=== PATIENT | male | born 1930 | race Caucasian/White ===

== ENCOUNTER 2019-10-16 12:05 | Inpatient (IN) | payer MEDICARE ==
[~2019-10-16] VITALS: Ht 172.7 cm; Wt 71.3 kg
[2019-10-16] MEDS ORDERED: SODIUM CHLORIDE 0.9% 1,000 ML IV ONE (12:37)
--- NOTE | 2019-10-16 12:38 | NUR ---
REPORT RECEIVED JEFFREY YOUNGER. PT ORIENTED TO SELF, NOT TIME/PLACE/SITUATION. NARVAEZ IN ROOM. PLAN LABS/URINE (NO NEED TO CATH). PLAN FOR SOCIAL ADMIT. PT ATE PBANDJ. VSS. CALL BARRAGAN IN REACH. NAD.
[2019-10-16] MEDS ORDERED: SODIUM CHLORIDE FLUSH 10ML SYR IVF ONE (13:00)
[2019-10-16] MEDS ORDERED: PLEASE ENTER ALLERGIES MC SCH (13:00)
--- NOTE | 2019-10-16 13:12 | NUR ---
PIV EST LABS SENT FLUIDS INFUSING.
[2019-10-16 13:17] LABS: BASOPHILS # (AUTO) 0.02 x10^3/uL (0-0.1); BASOPHILS % (AUTO) 0 % (0-1); EOSINOPHILS # (AUTO) 0.26 x10^3/uL (0-0.4); EOSINOPHILS % (AUTO) 5 % (1-7); LYMPHOCYTES # (AUTO) 1.14 x10^3/uL (1-3.4); LYMPHOCYTES % (AUTO) 23 % (22-44); MD NO; MEAN CORPUSCULAR HEMOGLOBIN 32.1 pg (27.5-34.5); MEAN CORPUSCULAR VOLUME 97.2 fL (81-97); MEAN PLATELET VOLUME 6.5 fL (7.4-10.4); MONOCYTES # (AUTO) 0.32 x10^3/uL (0.2-0.8); MONOCYTES % (AUTO) 7 % (2-9); NEUTROPHILS # (AUTO) 3.13 x10^3/uL (1.8-6.8); NEUTROPHILS % (AUTO) 64 % (42-75); PLATELET COUNT 288 x10^3/uL (130-400); RED BLOOD COUNT 4.08 x10^6/uL (4.38-5.82); RED CELL DISTRIBUTION WIDTH 14.6 % (9.4-14.8)
--- NOTE | 2019-10-16 13:25 | NUR ---
CXR SHOWS SMALL L PNEUMO
[2019-10-16 13:29] LABS: ALANINE AMINOTRANSFERASE 18 U/L (12-78); ALBUMIN 3.5 g/dL (3.4-5.0); ANION GAP 4 mmol/L (5-15); CALCIUM 8.4 mg/dL (8.5-10.1); CHLORIDE 108 mmol/L (98-107); CREATININE 1.51 mg/dL (0.7-1.3)
[2019-10-16 13:32] LABS: ALKALINE PHOSPHATASE 90 U/L (45-117); BILIRUBIN,TOTAL 1.1 mg/dL (0.2-1.0); TOTAL PROTEIN 7.2 g/dL (6.4-8.2)
--- NOTE | 2019-10-16 13:52 | NUR ---
labs unremarkable ct head wnl. sr on monitor. nad, call lua in reach. as
[2019-10-16] MEDS ORDERED: ZIPRASIDONE 20 MG INJ IM ONE ×2 (14:42→15:00)
--- NOTE | 2019-10-16 14:53 | NUR ---
PT PULLED OUT IV. VERY CONFUSED, NOT COOPERATING. DR JENKINS IN ROOM FOR EVAL. PT TO BE ADMITTED. 10 MG GEODON IM GIVEN PER VERBAL ORDER. 3 RNS AT BEDSIDE. SITTER IN PLACE, CHARGE NOTIFIED.
[2019-10-16] MEDS ORDERED: SODIUM CHLORIDE FLUSH 10ML SYR IVF PRN (15:00)
[2019-10-16] MEDS ORDERED: LORazepam 2 MG/ML, 1ML ONE (15:24)
[2019-10-16] MEDS ORDERED: ACETAMINOPHEN 325 MG TABLET PO PRN (15:30)
[2019-10-16] MEDS ORDERED: INSTRUCTION SEE COMMENTS XX PRN (15:30)
[2019-10-16] MEDS ORDERED: ONDANSETRON 2MG/ML, 2ML IVPush PRN (15:30)
[2019-10-16] MEDS ORDERED: AVOID BENZODIAZEPINES MC PRN (15:30)
[2019-10-16] MEDS ORDERED: LORazepam 2 MG/ML, 1ML IM ONE (15:30)
[2019-10-16] MEDS ORDERED: hydrALAzine 20 MG/ML, 1ML IVPush PRN (15:30)
--- NOTE | 2019-10-16 15:33 | NUR ---
ATIVAN IM. PT ATTEMPTING TO LEAVE, PUSHING STAFF, UNCOOPERATIVE. VEST RESTRAINT IN PLACE. SITTER IN PLACE. WCTM. AWAITING BED.
--- NOTE | 2019-10-16 15:46 | NUR ---
REPORT TO CHRISTIAN. CARISA
--- NOTE | 2019-10-16 15:55 | NUR ---
[id number] [employer] MARUICIO GAMEZ
[2019-10-16] MEDS: HEPARIN 5,000 UNITS/ML, 1ML SQ SCH (16:30)
[2019-10-16 19:07] VITALS: BP 178/76
[2019-10-16 19:10] VITALS: BP 174/81
[2019-10-16] MEDS: QUETIAPINE 25MG TABLET PO PRN (19:18)
[2019-10-16 19:51] VITALS: BP 151/89
[2019-10-16] MEDS: MELATONIN 3 MG TABLET PO SCH (21:31)
[2019-10-17] MEDS: TRAZODONE 50MG TABLET PO PRN (00:16)
[2019-10-17 01:49] VITALS: BP 150/70
[2019-10-17] MEDS: HEPARIN 5,000 UNITS/ML, 1ML SQ SCH ×2 (04:30→15:30)
[2019-10-17 05:55] LABS: BASOPHILS # (AUTO) 0.01 x10^3/uL (0-0.1); BASOPHILS % (AUTO) 0 % (0-1); EOSINOPHILS # (AUTO) 0.23 x10^3/uL (0-0.4); EOSINOPHILS % (AUTO) 3 % (1-7); LYMPHOCYTES # (AUTO) 1.24 x10^3/uL (1-3.4); LYMPHOCYTES % (AUTO) 19 % (22-44); MD NO; MEAN CORPUSCULAR HEMOGLOBIN 32.3 pg (27.5-34.5); MEAN CORPUSCULAR HGB CONC 33.5 g/dL (33.2-36.2); MEAN CORPUSCULAR VOLUME 96.4 fL (81-97); MEAN PLATELET VOLUME 6.9 fL (7.4-10.4); MONOCYTES # (AUTO) 0.47 x10^3/uL (0.2-0.8); MONOCYTES % (AUTO) 7 % (2-9); NEUTROPHILS # (AUTO) 4.63 x10^3/uL (1.8-6.8); NEUTROPHILS % (AUTO) 71 % (42-75); PLATELET COUNT 239 x10^3/uL (130-400); RED CELL DISTRIBUTION WIDTH 14.5 % (9.4-14.8)
[2019-10-17 06:01] LABS: ANION GAP 4 mmol/L (5-15); CALCIUM 8.8 mg/dL (8.5-10.1); CHLORIDE 111 mmol/L (98-107); CREATININE 1.22 mg/dL (0.7-1.3)
[2019-10-17 09:40] VITALS: BP 128/69
[2019-10-17 14:13] VITALS: BP 112/68
[2019-10-17 20:18] VITALS: BP 149/81
[2019-10-17] MEDS: MELATONIN 3 MG TABLET PO SCH (20:55)
[2019-10-17] MEDS: QUETIAPINE 25MG TABLET PO PRN (20:55)
[2019-10-17 21:11] LABS: MICROSCOPIC INDICATED
[2019-10-17 21:12] LABS: CULTURE INDICATED? NO
[2019-10-18] MEDS: HEPARIN 5,000 UNITS/ML, 1ML SQ SCH ×2 (04:30→14:44)
[2019-10-18 14:35] VITALS: BP 117/68
[2019-10-18 19:23] VITALS: BP 128/84
[2019-10-18] MEDS: MELATONIN 3 MG TABLET PO SCH ×2 (21:00→21:46)
[2019-10-19 00:50] VITALS: BP 132/77
[2019-10-19] MEDS: HEPARIN 5,000 UNITS/ML, 1ML SQ SCH ×2 (04:30→16:30)
[2019-10-19 06:49] LABS: ALBUMIN 2.8 g/dL (3.4-5.0); ANION GAP 6 mmol/L (5-15); CHLORIDE 106 mmol/L (98-107)
[2019-10-19 06:50] LABS: BASOPHILS # (AUTO) 0.01 x10^3/uL (0-0.1); BASOPHILS % (AUTO) 0 % (0-1); EOSINOPHILS # (AUTO) 0.21 x10^3/uL (0-0.4); EOSINOPHILS % (AUTO) 4 % (1-7); LYMPHOCYTES # (AUTO) 1.46 x10^3/uL (1-3.4); LYMPHOCYTES % (AUTO) 29 % (22-44); MD NO; MEAN CORPUSCULAR HEMOGLOBIN 32.8 pg (27.5-34.5); MEAN CORPUSCULAR HGB CONC 34.1 g/dL (33.2-36.2); MEAN CORPUSCULAR VOLUME 96.3 fL (81-97); MEAN PLATELET VOLUME 7.3 fL (7.4-10.4); MONOCYTES % (AUTO) 10 % (2-9); NEUTROPHILS % (AUTO) 56 % (42-75); PLATELET COUNT 229 x10^3/uL (130-400); RED BLOOD COUNT 3.23 x10^6/uL (4.38-5.82); RED CELL DISTRIBUTION WIDTH 15.1 % (9.4-14.8)
[2019-10-19 06:52] LABS: % IRON SATURATION 24 % (20-55); ALANINE AMINOTRANSFERASE 16 U/L (12-78); ALKALINE PHOSPHATASE 68 U/L (45-117); BILIRUBIN,TOTAL 0.9 mg/dL (0.2-1.0); CREATININE 1.71 mg/dL (0.7-1.3); IRON LEVEL 78 mcg/dL (65-175); TOTAL IRON BINDING CAPACITY 321 mcg/dL (250-450); TRANSFERRIN 258 mg/dL (200-360)
[2019-10-19 14:34] VITALS: BP 128/78
[2019-10-19 17:01] VITALS: BP 144/79
[2019-10-19 19:19] VITALS: BP 134/70
[2019-10-19] MEDS: MELATONIN 3 MG TABLET PO SCH (21:00)
[2019-10-20 02:16] VITALS: BP 128/76
[2019-10-20] MEDS: HEPARIN 5,000 UNITS/ML, 1ML SQ SCH ×2 (03:38→16:26)
[2019-10-20 06:48] LABS: BASOPHILS # (AUTO) 0.01 x10^3/uL (0-0.1); BASOPHILS % (AUTO) 0 % (0-1); EOSINOPHILS # (AUTO) 0.17 x10^3/uL (0-0.4); EOSINOPHILS % (AUTO) 3 % (1-7); LYMPHOCYTES % (AUTO) 26 % (22-44); MD NO; MEAN CORPUSCULAR HEMOGLOBIN 32.3 pg (27.5-34.5); MEAN CORPUSCULAR HGB CONC 33.8 g/dL (33.2-36.2); MEAN CORPUSCULAR VOLUME 95.6 fL (81-97); MEAN PLATELET VOLUME 6.9 fL (7.4-10.4); MONOCYTES # (AUTO) 0.53 x10^3/uL (0.2-0.8); MONOCYTES % (AUTO) 10 % (2-9); NEUTROPHILS # (AUTO) 3.32 x10^3/uL (1.8-6.8); NEUTROPHILS % (AUTO) 61 % (42-75); PLATELET COUNT 237 x10^3/uL (130-400); RED BLOOD COUNT 3.42 x10^6/uL (4.38-5.82); RED CELL DISTRIBUTION WIDTH 14.7 % (9.4-14.8)
[2019-10-20 06:52] LABS: ANION GAP 5 mmol/L (5-15); CALCIUM 8.7 mg/dL (8.5-10.1); CHLORIDE 102 mmol/L (98-107); CREATININE 1.66 mg/dL (0.7-1.3)
[2019-10-20 08:40] VITALS: BP 134/68
[2019-10-20 12:39] VITALS: BP 129/84
[2019-10-20] MEDS: MELATONIN 3 MG TABLET PO SCH (21:34)
[2019-10-20] MEDS: QUETIAPINE 25MG TABLET PO PRN (21:34)
[2019-10-21] MEDS: HEPARIN 5,000 UNITS/ML, 1ML SQ SCH ×2 (04:30→16:16)
[2019-10-21 07:33] VITALS: BP 109/69
[2019-10-21 12:48] VITALS: BP 121/71
[2019-10-21] MEDS ORDERED: HALOPERIDOL 5 MG/ML IM ONE (16:00)
[2019-10-21] MEDS: MELATONIN 3 MG TABLET PO SCH (21:00)
[2019-10-22] MEDS: HEPARIN 5,000 UNITS/ML, 1ML SQ SCH ×2 (04:22→16:30)
[2019-10-22] MEDS: QUETIAPINE 25MG TABLET PO SCH ×3 (09:00→21:32)
[2019-10-22] MEDS ORDERED: QUETIAPINE 25MG TABLET PO ONE (15:30)
[2019-10-22 15:53] VITALS: BP 112/71
[2019-10-22] MEDS: MELATONIN 3 MG TABLET PO SCH (21:32)
[2019-10-23] MEDS: HEPARIN 5,000 UNITS/ML, 1ML SQ SCH ×2 (04:32→16:30)
[2019-10-23] MEDS: QUETIAPINE 25MG TABLET PO SCH ×2 (09:00→21:48)
[2019-10-23 13:15] VITALS: BP 123/76
[2019-10-23 19:27] VITALS: BP 126/65
[2019-10-23] MEDS: MELATONIN 3 MG TABLET PO SCH (21:47)
[2019-10-24] MEDS: HEPARIN 5,000 UNITS/ML, 1ML SQ SCH ×2 (04:36→07:12)
[2019-10-24] MEDS: QUETIAPINE 25MG TABLET PO SCH ×2 (09:01→22:18)
[2019-10-24] MEDS: MELATONIN 3 MG TABLET PO SCH (22:18)
[2019-10-25 01:36] VITALS: BP 152/77
[2019-10-25] MEDS: HEPARIN 5,000 UNITS/ML, 1ML SQ SCH ×2 (04:33→16:30)
[2019-10-25 06:04] LABS: BASOPHILS # (AUTO) 0.02 x10^3/uL (0-0.1); BASOPHILS % (AUTO) 1 % (0-1); EOSINOPHILS # (AUTO) 0.19 x10^3/uL (0-0.4); EOSINOPHILS % (AUTO) 5 % (1-7); LYMPHOCYTES # (AUTO) 1.23 x10^3/uL (1-3.4); LYMPHOCYTES % (AUTO) 30 % (22-44); MD NO; MEAN CORPUSCULAR HEMOGLOBIN 33.1 pg (27.5-34.5); MEAN CORPUSCULAR HGB CONC 34.5 g/dL (33.2-36.2); MEAN CORPUSCULAR VOLUME 95.9 fL (81-97); MEAN PLATELET VOLUME 7.2 fL (7.4-10.4); MONOCYTES # (AUTO) 0.41 x10^3/uL (0.2-0.8); MONOCYTES % (AUTO) 10 % (2-9); NEUTROPHILS # (AUTO) 2.25 x10^3/uL (1.8-6.8); NEUTROPHILS % (AUTO) 55 % (42-75); PLATELET COUNT 223 x10^3/uL (130-400); RED BLOOD COUNT 3.09 x10^6/uL (4.38-5.82); RED CELL DISTRIBUTION WIDTH 14.8 % (9.4-14.8)
[2019-10-25 06:14] LABS: CHLORIDE 107 mmol/L (98-107)
[2019-10-25 06:22] LABS: ALANINE AMINOTRANSFERASE 22 U/L (12-78); ALBUMIN 2.9 g/dL (3.4-5.0); ALKALINE PHOSPHATASE 81 U/L (45-117); ANION GAP 4 mmol/L (5-15); BILIRUBIN,TOTAL 0.4 mg/dL (0.2-1.0); CALCIUM 8.1 mg/dL (8.5-10.1); TOTAL PROTEIN 6.3 g/dL (6.4-8.2)
[2019-10-25] MEDS: QUETIAPINE 25MG TABLET PO SCH ×2 (10:45→21:00)
[2019-10-25] MEDS ORDERED: HALOPERIDOL 5 MG/ML IM PRN (16:00)
[2019-10-25] MEDS: MELATONIN 3 MG TABLET PO SCH (21:00)
[2019-10-26] MEDS: HEPARIN 5,000 UNITS/ML, 1ML SQ SCH ×2 (03:56→15:14)
[2019-10-26 09:44] VITALS: BP 161/82
[2019-10-26] MEDS: QUETIAPINE 25MG TABLET PO SCH ×2 (10:04→21:00)
[2019-10-26 14:05] VITALS: BP 123/71
[2019-10-26 19:24] VITALS: BP 129/71
[2019-10-26] MEDS: MELATONIN 3 MG TABLET PO SCH (21:00)
[2019-10-27] MEDS: HEPARIN 5,000 UNITS/ML, 1ML SQ SCH (04:30)
[2019-10-27] MEDS: QUETIAPINE 25MG TABLET PO SCH ×2 (09:04→21:00)
[2019-10-27 12:53] VITALS: BP 100/65
[2019-10-27] MEDS ORDERED: ENOXAPARIN 40 MG/0.4 ML SQ SCH (17:30)
[2019-10-27 19:25] VITALS: BP 146/71
[2019-10-27] MEDS: MELATONIN 3 MG TABLET PO SCH (21:00)
[2019-10-28 07:19] VITALS: BP 149/80
[2019-10-28] MEDS: QUETIAPINE 25MG TABLET PO SCH ×3 (08:23→22:11)
[2019-10-28 13:14] VITALS: BP 103/67
[2019-10-28] MEDS: ENOXAPARIN 30 MG/0.3 ML SQ SCH (16:51)
[2019-10-28] MEDS: MELATONIN 3 MG TABLET PO SCH ×2 (19:46→22:11)
[2019-10-29] MEDS ORDERED: HALOPERIDOL 5 MG/ML IM PRN (08:00)
[2019-10-29] MEDS: QUETIAPINE 25MG TABLET PO SCH ×2 (09:00→21:00)
[2019-10-29 09:09] VITALS: BP 127/80
[2019-10-29 15:22] VITALS: BP 146/69
[2019-10-29] MEDS: ENOXAPARIN 30 MG/0.3 ML SQ SCH (17:43)
[2019-10-29 19:04] VITALS: BP 119/72
[2019-10-29] MEDS: MELATONIN 3 MG TABLET PO SCH (21:00)
[2019-10-30 08:44] VITALS: BP 112/66
[2019-10-30] MEDS: QUETIAPINE 25MG TABLET PO SCH ×3 (09:00→19:51)
[2019-10-30] MEDS: ENOXAPARIN 40 MG/0.4 ML SQ SCH (17:30)
[2019-10-30] MEDS: MELATONIN 3 MG TABLET PO SCH ×2 (19:47→19:51)
[2019-10-30 20:24] VITALS: BP 128/74
[2019-10-31] MEDS: QUETIAPINE 25MG TABLET PO SCH ×2 (09:00→21:00)
[2019-10-31] MEDS: ENOXAPARIN 40 MG/0.4 ML SQ SCH (17:12)
[2019-10-31 20:40] VITALS: BP 128/82
[2019-10-31] MEDS: MELATONIN 3 MG TABLET PO SCH (21:01)
[2019-11-01] MEDS: QUETIAPINE 25MG TABLET PO SCH ×3 (09:00→20:43)
[2019-11-01 15:05] VITALS: BP 105/69
[2019-11-01] MEDS: ENOXAPARIN 40 MG/0.4 ML SQ SCH (17:30)
[2019-11-01 18:38] VITALS: BP 120/65
[2019-11-01] MEDS: MELATONIN 3 MG TABLET PO SCH (20:43)
[2019-11-02] MEDS: QUETIAPINE 25MG TABLET PO SCH ×3 (08:51→20:15)
[2019-11-02 11:17] VITALS: BP 105/64
[2019-11-02 13:01] VITALS: BP 120/72
[2019-11-02] MEDS: ENOXAPARIN 40 MG/0.4 ML SQ SCH (17:30)
[2019-11-02] MEDS: MELATONIN 3 MG TABLET PO SCH ×2 (20:08→20:15)
[2019-11-02 20:28] VITALS: BP 106/68
[2019-11-03] MEDS: QUETIAPINE 25MG TABLET PO SCH ×2 (09:07→21:16)
[2019-11-03 09:28] VITALS: BP 117/71
[2019-11-03] MEDS: ENOXAPARIN 40 MG/0.4 ML SQ SCH (17:30)
[2019-11-03 19:23] VITALS: BP 134/72
[2019-11-03] MEDS: MELATONIN 3 MG TABLET PO SCH (21:16)
[2019-11-04] MEDS: TRAZODONE 50MG TABLET PO PRN (01:53)
[2019-11-04 02:45] VITALS: BP 133/77
[2019-11-04] MEDS: QUETIAPINE 25MG TABLET PO SCH ×2 (09:00→21:38)
[2019-11-04 12:13] VITALS: BP 116/71
[2019-11-04] MEDS: ENOXAPARIN 40 MG/0.4 ML SQ SCH (17:30)
[2019-11-04] MEDS: MELATONIN 3 MG TABLET PO SCH (21:38)
[2019-11-05] MEDS: QUETIAPINE 25MG TABLET PO SCH ×2 (10:02→20:25)
[2019-11-05 14:28] VITALS: BP 106/62
[2019-11-05] MEDS: ENOXAPARIN 40 MG/0.4 ML SQ SCH (17:30)
[2019-11-05] MEDS: MELATONIN 3 MG TABLET PO SCH (20:25)
[2019-11-06 10:30] VITALS: BP 111/71
[2019-11-06] MEDS: QUETIAPINE 25MG TABLET PO SCH ×2 (10:41→20:54)
[2019-11-06] MEDS: ENOXAPARIN 40 MG/0.4 ML SQ SCH (18:18)
[2019-11-06] MEDS: MELATONIN 3 MG TABLET PO SCH (20:54)
[2019-11-07 09:11] LABS: ALANINE AMINOTRANSFERASE 19 U/L (12-78); ANION GAP 6 mmol/L (5-15); CALCIUM 7.8 mg/dL (8.5-10.1); CHLORIDE 110 mmol/L (98-107); CREATININE 1.36 mg/dL (0.7-1.3)
[2019-11-07 09:14] LABS: ALKALINE PHOSPHATASE 75 U/L (45-117); BILIRUBIN,TOTAL 0.5 mg/dL (0.2-1.0); TOTAL PROTEIN 6.2 g/dL (6.4-8.2)
[2019-11-07 09:45] VITALS: BP 115/71
[2019-11-07] MEDS: QUETIAPINE 25MG TABLET PO SCH ×2 (09:57→20:13)
[2019-11-07] MEDS: ENOXAPARIN 40 MG/0.4 ML SQ SCH (17:59)
[2019-11-07] MEDS: MELATONIN 3 MG TABLET PO SCH (20:12)
[2019-11-07 20:19] VITALS: BP 105/59
[2019-11-08] MEDS: QUETIAPINE 25MG TABLET PO SCH ×2 (08:33→21:35)
[2019-11-08 09:00] LABS: CREATININE 1.28 mg/dL (0.7-1.3)
[2019-11-08 13:32] VITALS: BP 121/71
[2019-11-08] MEDS: ENOXAPARIN 40 MG/0.4 ML SQ SCH (17:46)
[2019-11-08 18:50] VITALS: BP 123/70
[2019-11-08] MEDS: MELATONIN 3 MG TABLET PO SCH (21:34)
[2019-11-09 07:15] VITALS: BP 115/74
[2019-11-09] MEDS: QUETIAPINE 25MG TABLET PO SCH ×2 (09:12→19:59)
[2019-11-09 15:33] VITALS: BP 96/58
[2019-11-09] MEDS: ENOXAPARIN 40 MG/0.4 ML SQ SCH (17:22)
[2019-11-09] MEDS: MELATONIN 3 MG TABLET PO SCH (19:59)
[2019-11-09 20:12] VITALS: BP 154/70
[2019-11-10 08:26] VITALS: BP 114/68
[2019-11-10] MEDS: QUETIAPINE 25MG TABLET PO SCH ×2 (09:03→20:31)
[2019-11-10 14:13] VITALS: BP 113/74
[2019-11-10] MEDS: ENOXAPARIN 40 MG/0.4 ML SQ SCH (17:30)
[2019-11-10] MEDS: MELATONIN 3 MG TABLET PO SCH (20:31)
[2019-11-10 20:38] VITALS: BP 128/77
[2019-11-11 07:47] VITALS: BP 144/72
[2019-11-11] MEDS: QUETIAPINE 25MG TABLET PO SCH ×2 (09:05→20:13)
[2019-11-11 09:30] LABS: CREATININE 1.33 mg/dL (0.7-1.3)
[2019-11-11 13:40] VITALS: BP 108/63
[2019-11-11] MEDS: ENOXAPARIN 40 MG/0.4 ML SQ SCH (16:53)
[2019-11-11 19:45] VITALS: BP 165/68
[2019-11-11] MEDS: MELATONIN 3 MG TABLET PO SCH (20:13)
[2019-11-12 06:48] VITALS: BP 168/76
[2019-11-12 09:38] LABS: CREATININE 1.31 mg/dL (0.7-1.3)
[2019-11-12] MEDS: QUETIAPINE 25MG TABLET PO SCH ×2 (09:41→20:23)
[2019-11-12 13:59] VITALS: BP 100/62
[2019-11-12] MEDS: ENOXAPARIN 40 MG/0.4 ML SQ SCH (17:30)
[2019-11-12] MEDS: MELATONIN 3 MG TABLET PO SCH (20:23)
[2019-11-13 05:23] LABS: CREATININE 1.39 mg/dL (0.7-1.3)
[2019-11-13 08:03] VITALS: BP 155/84
[2019-11-13] MEDS: QUETIAPINE 25MG TABLET PO SCH ×2 (08:18→21:17)
[2019-11-13 15:44] VITALS: BP 119/73
[2019-11-13] MEDS: ENOXAPARIN 40 MG/0.4 ML SQ SCH (17:28)
[2019-11-13 20:00] VITALS: BP 127/73
[2019-11-13] MEDS: MELATONIN 3 MG TABLET PO SCH (21:14)
[2019-11-14] MEDS: QUETIAPINE 25MG TABLET PO SCH ×2 (09:01→20:10)
[2019-11-14 09:55] VITALS: BP 106/67
[2019-11-14 15:55] VITALS: BP 129/77
[2019-11-14] MEDS: ENOXAPARIN 40 MG/0.4 ML SQ SCH (17:10)
[2019-11-14] MEDS: MELATONIN 3 MG TABLET PO SCH (20:10)
[2019-11-15 08:07] VITALS: BP 111/71
[2019-11-15] MEDS: QUETIAPINE 25MG TABLET PO SCH ×2 (08:16→21:00)
[2019-11-15 13:52] VITALS: BP 112/73
[2019-11-15] MEDS: ENOXAPARIN 40 MG/0.4 ML SQ SCH (17:30)
[2019-11-15 20:10] VITALS: BP 109/71
[2019-11-15] MEDS: MELATONIN 3 MG TABLET PO SCH (21:00)
[2019-11-16] MEDS: QUETIAPINE 25MG TABLET PO SCH ×2 (08:22→21:17)
[2019-11-16 08:37] VITALS: BP 130/79
[2019-11-16] MEDS: ENOXAPARIN 40 MG/0.4 ML SQ SCH (17:30)
[2019-11-16 21:09] VITALS: BP 115/79
[2019-11-16] MEDS: MELATONIN 3 MG TABLET PO SCH (21:17)
[2019-11-17 08:46] VITALS: BP 105/68
[2019-11-17] MEDS: QUETIAPINE 25MG TABLET PO SCH ×2 (11:23→21:13)
[2019-11-17 12:47] VITALS: BP 94/60
[2019-11-17] MEDS: MELATONIN 3 MG TABLET PO SCH (21:12)
[2019-11-17 21:16] VITALS: BP 120/74
[2019-11-18 08:00] VITALS: BP 104/64
[2019-11-18] MEDS: QUETIAPINE 25MG TABLET PO SCH ×2 (09:15→20:25)
[2019-11-18 12:27] VITALS: BP 100/65
[2019-11-18 19:07] VITALS: BP 134/79
[2019-11-18] MEDS: MELATONIN 3 MG TABLET PO SCH (20:25)
[2019-11-19 08:00] VITALS: BP 116/71
[2019-11-19] MEDS: QUETIAPINE 25MG TABLET PO SCH ×2 (08:15→22:55)
[2019-11-19 08:36] VITALS: BP_SYST 116; BP_DIAS 18; BP_DIAS 68
[2019-11-19 13:53] VITALS: BP 100/52
[2019-11-19 20:11] VITALS: BP 104/62
[2019-11-19] MEDS: MELATONIN 3 MG TABLET PO SCH (22:53)
[2019-11-20 08:27] VITALS: BP 104/66
[2019-11-20] MEDS: QUETIAPINE 25MG TABLET PO SCH ×2 (09:30→21:12)
[2019-11-20] MEDS ORDERED: POLYETHYLENE GLYCOL 17 GM PACKET PO PRN (11:30)
[2019-11-20] MEDS: SENNA/DOCUSATE TABLET PO SCH (11:40)
[2019-11-20 13:12] VITALS: BP 98/63
[2019-11-20] MEDS: MELATONIN 3 MG TABLET PO SCH (21:12)
[2019-11-21] MEDS: SENNA/DOCUSATE TABLET PO SCH (09:36)
[2019-11-21] MEDS: QUETIAPINE 25MG TABLET PO SCH ×2 (09:37→20:16)
[2019-11-21] MEDS: MELATONIN 3 MG TABLET PO SCH (20:16)
[2019-11-22] MEDS: SENNA/DOCUSATE TABLET PO SCH (08:54)
[2019-11-22] MEDS: QUETIAPINE 25MG TABLET PO SCH ×2 (08:54→20:56)
[2019-11-22] MEDS: MELATONIN 3 MG TABLET PO SCH (20:56)
[2019-11-23 08:44] VITALS: BP 105/69
[2019-11-23] MEDS: QUETIAPINE 25MG TABLET PO SCH ×2 (09:04→20:01)
[2019-11-23] MEDS: SENNA/DOCUSATE TABLET PO SCH (09:04)
[2019-11-23 12:59] VITALS: BP 110/70
[2019-11-23] MEDS: MELATONIN 3 MG TABLET PO SCH (20:02)
[2019-11-23 20:16] VITALS: BP 113/52
[2019-11-24] MEDS: QUETIAPINE 25MG TABLET PO SCH ×2 (08:02→20:55)
[2019-11-24] MEDS: SENNA/DOCUSATE TABLET PO SCH (08:03)
[2019-11-24 08:39] VITALS: BP 104/63
[2019-11-24 18:30] VITALS: BP 130/80
[2019-11-24] MEDS: MELATONIN 3 MG TABLET PO SCH (20:55)
[2019-11-25 07:42] VITALS: BP 124/75
[2019-11-25] MEDS: QUETIAPINE 25MG TABLET PO SCH ×2 (09:16→20:20)
[2019-11-25] MEDS: SENNA/DOCUSATE TABLET PO SCH (09:16)
[2019-11-25 12:02] VITALS: BP 104/66
[2019-11-25] MEDS: MELATONIN 3 MG TABLET PO SCH (20:20)
[2019-11-25 20:50] VITALS: BP 131/69
[2019-11-26] MEDS: SENNA/DOCUSATE TABLET PO SCH (08:31)
[2019-11-26] MEDS: QUETIAPINE 25MG TABLET PO SCH ×2 (08:31→20:08)
[2019-11-26 09:18] VITALS: BP 99/63
[2019-11-26] MEDS: MELATONIN 3 MG TABLET PO SCH (20:08)
[2019-11-27 08:14] VITALS: BP 118/75
[2019-11-27] MEDS: SENNA/DOCUSATE TABLET PO SCH (09:07)
[2019-11-27] MEDS: QUETIAPINE 25MG TABLET PO SCH ×2 (09:07→20:49)
[2019-11-27] MEDS: MELATONIN 3 MG TABLET PO SCH (20:49)
[2019-11-28] MEDS: SENNA/DOCUSATE TABLET PO SCH (08:12)
[2019-11-28] MEDS: QUETIAPINE 25MG TABLET PO SCH ×2 (08:12→20:15)
[2019-11-28 09:34] VITALS: BP 108/67
[2019-11-28] MEDS: MELATONIN 3 MG TABLET PO SCH (20:15)
[2019-11-28 20:24] VITALS: BP 138/80
[2019-11-29 06:40] VITALS: BP 103/70
[2019-11-29] MEDS: QUETIAPINE 25MG TABLET PO SCH ×2 (09:02→20:12)
[2019-11-29] MEDS: SENNA/DOCUSATE TABLET PO SCH (09:02)
[2019-11-29] MEDS: MELATONIN 3 MG TABLET PO SCH (20:12)
[2019-11-30 06:52] VITALS: BP 114/71
[2019-11-30] MEDS: QUETIAPINE 25MG TABLET PO SCH ×2 (09:04→20:17)
[2019-11-30] MEDS: SENNA/DOCUSATE TABLET PO SCH (09:04)
[2019-11-30 12:15] VITALS: BP 100/64
[2019-11-30] MEDS: MELATONIN 3 MG TABLET PO SCH (20:17)
[2019-12-01 07:35] VITALS: BP 128/71
[2019-12-01] MEDS: QUETIAPINE 25MG TABLET PO SCH ×2 (09:20→20:07)
[2019-12-01] MEDS: SENNA/DOCUSATE TABLET PO SCH (09:20)
[2019-12-01 13:55] VITALS: BP 101/60
[2019-12-01] MEDS: MELATONIN 3 MG TABLET PO SCH (20:07)
[2019-12-02 09:02] LABS: BASOPHILS # (AUTO) 0.01 x10^3/uL (0-0.1); BASOPHILS % (AUTO) 0 % (0-1); EOSINOPHILS % (AUTO) 2 % (1-7); LYMPHOCYTES % (AUTO) 14 % (22-44); MD NO; MEAN CORPUSCULAR HGB CONC 33.2 g/dL (33.2-36.2); MEAN CORPUSCULAR VOLUME 96.6 fL (81-97); MEAN PLATELET VOLUME 6.4 fL (7.4-10.4); MONOCYTES # (AUTO) 0.39 x10^3/uL (0.2-0.8); MONOCYTES % (AUTO) 7 % (2-9); NEUTROPHILS # (AUTO) 4.22 x10^3/uL (1.8-6.8); NEUTROPHILS % (AUTO) 76 % (42-75); PLATELET COUNT 295 x10^3/uL (130-400); RED BLOOD COUNT 3.08 x10^6/uL (4.38-5.82); RED CELL DISTRIBUTION WIDTH 14.8 % (9.4-14.8)
[2019-12-02] MEDS: SENNA/DOCUSATE TABLET PO SCH (09:06)
[2019-12-02] MEDS: QUETIAPINE 25MG TABLET PO SCH ×2 (09:07→20:17)
[2019-12-02 09:13] LABS: ANION GAP 7 mmol/L (5-15); CHLORIDE 109 mmol/L (98-107); CREATININE 1.46 mg/dL (0.7-1.3)
[2019-12-02 09:38] VITALS: BP 103/62
[2019-12-02] MEDS: MELATONIN 3 MG TABLET PO SCH (20:17)
[2019-12-03 09:21] VITALS: BP 97/60
[2019-12-03] MEDS: SENNA/DOCUSATE TABLET PO SCH (10:51)
[2019-12-03] MEDS: QUETIAPINE 25MG TABLET PO SCH ×2 (10:52→20:55)
[2019-12-03] MEDS: MELATONIN 3 MG TABLET PO SCH (20:56)
[2019-12-04 08:48] VITALS: BP 113/71
[2019-12-04] MEDS: QUETIAPINE 25MG TABLET PO SCH ×2 (09:52→20:58)
[2019-12-04] MEDS: SENNA/DOCUSATE TABLET PO SCH (09:52)
[2019-12-04] MEDS: MELATONIN 3 MG TABLET PO SCH (20:58)
[2019-12-05] MEDS: QUETIAPINE 25MG TABLET PO SCH ×2 (08:57→20:50)
[2019-12-05] MEDS: SENNA/DOCUSATE TABLET PO SCH (08:57)
[2019-12-05 19:36] VITALS: BP 127/72
[2019-12-05] MEDS: MELATONIN 3 MG TABLET PO SCH (20:50)
[2019-12-06 07:55] VITALS: BP 122/73
[2019-12-06] MEDS: SENNA/DOCUSATE TABLET PO SCH (08:45)
[2019-12-06] MEDS: QUETIAPINE 25MG TABLET PO SCH ×2 (08:46→20:45)
[2019-12-06 15:45] VITALS: BP 132/76
[2019-12-06] MEDS: MELATONIN 3 MG TABLET PO SCH (20:45)
[2019-12-07] MEDS: SENNA/DOCUSATE TABLET PO SCH (08:55)
[2019-12-07] MEDS: QUETIAPINE 25MG TABLET PO SCH ×2 (08:55→21:34)
[2019-12-07] MEDS: MELATONIN 3 MG TABLET PO SCH (21:34)
[2019-12-08 07:17] VITALS: BP 113/69
[2019-12-08] MEDS: QUETIAPINE 25MG TABLET PO SCH ×3 (10:25→22:59)
[2019-12-08] MEDS: SENNA/DOCUSATE TABLET PO SCH (10:25)
[2019-12-08] MEDS: MELATONIN 3 MG TABLET PO SCH ×2 (21:00→22:59)
[2019-12-09] MEDS: SENNA/DOCUSATE TABLET PO SCH (10:01)
[2019-12-09] MEDS: QUETIAPINE 25MG TABLET PO SCH ×2 (10:02→20:51)
[2019-12-09] MEDS: MELATONIN 3 MG TABLET PO SCH (20:50)
[2019-12-10] MEDS: SENNA/DOCUSATE TABLET PO SCH (08:35)
[2019-12-10] MEDS: QUETIAPINE 25MG TABLET PO SCH ×2 (08:35→21:35)
[2019-12-10 14:14] VITALS: BP 114/60
[2019-12-10 20:36] VITALS: BP 128/78
[2019-12-10] MEDS: MELATONIN 3 MG TABLET PO SCH (21:35)
[2019-12-11] MEDS ORDERED: SENN-193 PO ×3 (08:13→09:36)
[2019-12-11] MEDS ORDERED: ACET325T26 PO ×3 (08:13→09:36)
[2019-12-11] MEDS ORDERED: MELA3TAB56 PO ×3 (08:13→09:36)
[2019-12-11] MEDS ORDERED: QUET25TA7 PO ×3 (08:13→09:36)
[2019-12-11] MEDS: SENNA/DOCUSATE TABLET PO SCH (08:47)
[2019-12-11] MEDS: QUETIAPINE 25MG TABLET PO SCH (08:48)
[2019-12-11] MEDS ORDERED: HALOPERIDOL 2 MG TABLET PO ONE (09:45)
== END 2019-12-11 11:04 | disposition home or self-care (01) | DRG 199 ==
LOC: ED 12:43 → SUATTDRO 14:28 → EDIP 14:42 → INTOOBSV 14:42 → OBSVTOIN 14:42 → 3N 16:04
PROVIDERS: ADMIT Hospitalist; ATTEND Family Medicine
DX: J93.83 Other pneumothorax (principal); N17.0 Acute kidney failure with tubular necrosis; E43 Unspecified severe protein-calorie malnutrition; F03.91 Unspecified dementia, unspecified severity, with behavioral disturbance; E86.0 Dehydration; R62.7 Adult failure to thrive; I73.9 Peripheral vascular disease, unspecified; D64.9 Anemia, unspecified; R41.89 Other symptoms and signs involving cognitive functions and awareness; N18.3 Chronic kidney disease, stage 3 (moderate); Z79.899 Other long term (current) drug therapy; Z68.23 Body mass index [BMI] 23.0-23.9, adult
CPT/HCPCS: 36415; 70450; 70551; 71045; 80048; 80053; 81001; 82140; 82565; 82728; 83540; 83550; 83605; 84466; 85025; 86592; 93005; 96372; 99285; G0378; J1650; J3486; 92523-GN; J1630; J2060